=== PATIENT | female | born 1940 | race Caucasian/White ===

== ENCOUNTER 2019-07-08 11:08 | Day surgery (SDC) | payer OTHER ==
[2019-07-07 16:47] VITALS: BMI 22.2
[2019-07-08] MEDS ORDERED: PROPOFOL 20 ML ONE (13:28)
[2019-07-08] MEDS ORDERED: ceFAZolin SODIUM 1 GM VIAL IVPB ONE (13:42)
[2019-07-08] MEDS ORDERED: LACTATED RINGERS SOLUTION 1,000 ML IV SCH (14:00)
[2019-07-08] MEDS ORDERED: ONDANSETRON 4 MG/2 ML VIAL IVPUSH PRN (14:00)
--- NOTE | 2019-07-08 14:13 | CONS ---
DATE OF CONSULTATION: DATE OF DICTATION: 07/08/2019 HISTORY: Patient is a 78-year-old female with a history of transitional cell carcinoma of the urinary bladder. The patient underwent TUR bladder tumor in April 2019. This was over the left ureteral orifice, and there was left hydroureteronephrosis. Therefore, patient underwent a left JJ stent. She does have history of a CVA in the past. ALLERGIES: She is allergic to STRAWBERRIES. PAST MEDICAL HISTORY: She also has a history of high blood pressure, coronary artery disease, dyslipidemia, atrial fibrillation, and a CVA. She has been on anticoagulants but has stopped for the past 5 days. PHYSICAL EXAMINATION: General: Reveals a well oriented in no apparent distress adult female. Chest: Clear. Abdomen: Soft. There is no CVA tenderness. Pelvic: Reveals no masses. A CT scan revealed bilateral hydroureteronephrosis with a stent in the left renal unit. The patient's BUN is 24, creatinine 1.9. IMPRESSION: At present is: 1. History of bladder tumor. 2. History of left JJ stent. 3. CAT scan findings of bilateral hydronephrosis. PLAN: Cystoscopy, possible left stent exchange, right retrograde pyelogram, possible placement of stent, possible TUR bladder tumor. Tesha [id number]
--- NOTE | 2019-07-08 14:32 | OP ---
Operative Note - Note: Operative Date: 07/08/19 Pre-Operative Diagnosis: sharon. hydro, h/o tcc of bladder, lt. migrated jj stent Operation: cysto, sharon. retro. attempted jj stents Findings: gr-4 cystocele and hemorrgh. cystitis Post-Operative Diagnosis: Same as Pre-op Surgeon: Simon Mueller Anesthesia: General Specimens Removed: urine Estimated Blood Loss (mls): 0 Drains & Tubes with Location: 18f 10cc ashley Drains, Volume Out (mls): 0 Blood Volume Replaced (mls): 0 Fluid Volume Replaced (mls): 0 Operative Report Dictated: Yes
--- NOTE | 2019-07-08 15:00 | OP ---
DATE OF OPERATION: DATE OF DICTATION: 07/08/2019 PREOPERATIVE DIAGNOSIS: History of recurrent bladder tumor, bilateral hydronephrosis, left JJ stent. POSTOPERATIVE DIAGNOSIS: No tumors seen. Migrated left JJ stent, hemorrhagic cystitits, grade 4 cystocele. ANESTHESIA: General. DESCRIPTION OF PROCEDURE: Under above-stated anesthesia, patient was prepped and draped in the usual sterile manner. She was placed in the dorsal lithotomy position. Inspection of the external genitalia revealed complete descent of the bladder outside the vaginal orifice. There was also a large urethra caruncle and atrophic vaginitis. Cystoscopy revealed 50 mL of purulent urine. This was sent for culture and sensitivity. Inspection of the bladder revealed severe trabeculation and hyperemia. No overt tumors were seen. Both ureteral orifices were unable to be seen or cannulated. Therefore, the bladder was emptied. Scope was removed. The 16-Turkish Saab was left in place. The patient tolerated the procedure well. She will go for a percutaneous left nephrostomy and removal of stent. Tesha [id number]
[2019-07-08 17:32] VITALS: PULSE 80; TEMP 97.8
[2019-07-08 18:01] VITALS: BP 111/58
== END 2019-07-08 17:15 | disposition home or self-care (01) ==
LOC: JASU-SURG 11:08
PROVIDERS: ATTEND Urology
PROC: 0TJB8ZZ Inspection of Bladder, Via Natural or Artificial Opening Endoscopic (ICD-10-PCS; principal; 2019-07-08 13:30)
DX: N32.89 Other specified disorders of bladder (principal); N30.81 Other cystitis with hematuria; N81.10 Cystocele, unspecified; N95.2 Postmenopausal atrophic vaginitis
CPT/HCPCS: 76000-TC-FY; 87086; 87186; 94760

== ENCOUNTER 2019-08-18 08:14 | Day surgery (SDC) | payer OTHER ==
[2019-08-15 11:29] VITALS: BMI 20.9
[2019-08-18 08:56] LABS: BASO % 0.4 % (0-2.0); EOS % 3.5 % (0-4.5); HEMATOCRIT 36.4 % (32.4-45.2); HEMOGLOBIN 11.8 GM/dL (10.7-15.3); LYMPH % 18.4 % (8-40); MCH 30.4 pg (25.7-33.7); MCHC 32.5 g/dl (32.0-36.0); MEAN CELL VOLUME 93.6 fl (80-96); MONO % 6.2 % (3.8-10.2); NEUT % 71.5 % (42.8-82.8); PLATELET COUNT 350 K/MM3 (134-434); RBC 3.89 M/mm3 (3.60-5.2); WHITE BLOOD COUNT 12.7 K/mm3 (4.0-10.0)
[2019-08-18 09:15] LABS: INR 0.92 (0.83-1.09); PROTHROMBIN TIME (PATIENT) 10.9 SEC (9.7-13.0)
[2019-08-18 14:26] VITALS: TEMP 97.5
[2019-08-18 15:41] VITALS: BP 117/68; PULSE 85
== END 2019-08-18 15:00 | disposition home or self-care (01) ==
LOC: JRADIR 08:14
PROVIDERS: ATTEND Urology
PROC: 0T9130Z Drainage of Left Kidney with Drainage Device, Percutaneous Approach (ICD-10-PCS; principal; 2019-08-18)
DX: N13.30 Unspecified hydronephrosis (principal)
CPT/HCPCS: 36415; 50432; 76942-TC; 85025; 85610; 87086; 87186; C1729; C1769

== ENCOUNTER 2019-09-01 09:24 | Day surgery (SDC) | payer OTHER ==
[2019-08-29 12:08] VITALS: BMI 20.9
[2019-09-01 16:00] VITALS: TEMP 98.3
[2019-09-01 17:37] VITALS: PULSE 78
[2019-09-01 18:45] VITALS: BP 111/68
== END 2019-09-01 17:45 | disposition home or self-care (01) ==
LOC: JRADIR 09:24
PROVIDERS: ATTEND Urology
PROC: 0TP93DZ Removal of Intraluminal Device from Ureter, Percutaneous Approach (ICD-10-PCS; principal; 2019-09-01)
PROC: 0T773DZ Dilation of Left Ureter with Intraluminal Device, Percutaneous Approach (ICD-10-PCS; 2019-09-01)
PROC: 0T25X0Z Change Drainage Device in Kidney, External Approach (ICD-10-PCS; 2019-09-01)
DX: N13.9 Obstructive and reflux uropathy, unspecified (principal); N13.30 Unspecified hydronephrosis; Z43.6 Encounter for attention to other artificial openings of urinary tract
CPT/HCPCS: 50384; 50433; 76000-TC-FY; A4358; C1769; C1887; C1894

== ENCOUNTER → 2019-09-15 | Day surgery (SDC) | payer OTHER | END | disposition home or self-care (01) | LOC: JRADIR 10:57 | PROVIDERS: ATTEND Radiology Diagnostic Radiology | PROC: 0T25X0Z Change Drainage Device in Kidney, External Approach (ICD-10-PCS; principal; 2019-09-15) | DX: N13.9 Obstructive and reflux uropathy, unspecified (principal); Z43.6 Encounter for attention to other artificial openings of urinary tract | CPT/HCPCS: 50435; C1729; C1769; C1894 ==

== ENCOUNTER → 2019-09-29 | Day surgery (SDC) | payer OTHER | END | disposition home or self-care (01) | LOC: JRADIR 10:37 | PROVIDERS: ATTEND Radiology Diagnostic Radiology | PROC: 0TP5X0Z Removal of Drainage Device from Kidney, External Approach (ICD-10-PCS; principal; 2019-09-29) | DX: Z43.6 Encounter for attention to other artificial openings of urinary tract (principal) | CPT/HCPCS: 50389; 50431; 74425-TC-FY ==

== ENCOUNTER 2020-02-25 08:35 | Day surgery (SDC) | payer OTHER ==
[2020-02-24 17:31] VITALS: BMI 24.7
[2020-02-25] MEDS ORDERED: PROPOFOL 20 ML ONE (11:36)
[2020-02-25] MEDS ORDERED: ceFAZolin SODIUM 1 GM VIAL IVPB ONE ×2 (12:05→12:09)
[2020-02-25] MEDS ORDERED: EPHEDRINE SULFATE/0.9% NACL/PF 50 MG/10 ML SYRINGE NR ONE (12:12)
[2020-02-25] MEDS ORDERED: ceFAZolin SODIUM 1 GM VIAL ONE ×2 (12:13)
--- NOTE | 2020-02-25 12:45 | OP ---
Operative Note - Note: Operative Date: 02/25/20 Pre-Operative Diagnosis: bladder tumor (tcc) Operation: turbt Findings: large papillary tumor on rt. lat. wall and rt. hemitrigone Post-Operative Diagnosis: Same as Pre-op Surgeon: Simon Mueller Anesthesia: General Specimens Removed: bladder tumor chips Estimated Blood Loss (mls): 30 Drains & Tubes with Location: 22f 20cc ashley Drains, Volume Out (mls): 0 Blood Volume Replaced (mls): 0 Fluid Volume Replaced (mls): 0 Operative Report Dictated: Yes
[2020-02-25] MEDS ORDERED: ACETAMINOPHEN 325 MG TABLET (FP) PO PRN (12:46)
[2020-02-25 17:21] VITALS: BP 112/76; PULSE 78; TEMP 98
--- NOTE | 2020-02-26 11:45 | HP ---
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 She last underwent a TUR of bladder tumor in July 2019. She also has a left percutaneous nephrostomy due to hydronephrosis. Patient has had a history of high blood pressure, COPD, coronary artery disease, and dyslipidemia. She is allergic to STRAWBERRIES. She denies tobacco or ethanol abuse. She is on a statin as well as Eliquis, which she stopped. Physical exam revealed a soft abdomen. No CVA tenderness is noted. Extremities revealed no cyanosis, clubbing, or edema. BUN and creatinine were 23/1.3, respectively. A urinalysis is positive for blood. IMPRESSION: At present is rule out recurrent transitional cell carcinoma of urinary bladder. PLAN: Cystoscopy, possible TUR of bladder. Tesha [id number]
--- NOTE | 2020-02-26 17:57 | OP ---
DATE OF OPERATION: PREOPERATIVE DIAGNOSIS: History of recurrent bladder tumor. POSTOPERATIVE DIAGNOSIS: Recurrent bladder tumor. OPERATIVE PROCEDURE: Cystourethroscopy, transurethral resection of bladder tumor. ANESTHESIA: General. DESCRIPTION OF PROCEDURE: Under above stated anesthesia, patient was prepped and draped in the usual sterile manner. She was placed in the dorsal lithotomy position. Inspection of the external genitalia revealed vaginal stenosis with atrophic vaginitis. There was a large urethral caruncle. Bladder was entered. Urine was collected for culture and sensitivity as well as cytology. Inspection of the bladder reveals a large papillary tumor involving the right lateral wall and the right lorraine dome of the bladder, approximately 7 cm in diameter. This was resected in the usual fashion. The base was cauterized. Ureteral orifices were within normal limits with efflux of clear urine. Tumor chips were evacuated with an [employer] evacuator. No active bleeding was noted. Therefore the bladder was emptied, the scope was removed. A 24 Vietnamese Saab was inserted. This was connected to a drainage bag. The patient tolerated the procedure well. She returned to the recovery room in good condition. Tesha [id number]
--- NOTE | 2020-02-27 19:20 | PATH ---
Surgical Pathology Report Patient Name: ELVIS LITTLE [facility]. Rec. #: [id number] /Age/Gender: 1940 (Age: 79) / F Account: [id number] Location: [facility] SURGICAL Taken: 02/25/2020 Received: 02/25/2020 Reported: 02/27/2020 Physicians: Simon Mueller M.D. Specimen(s) Received BLADDER CHIPS, BLADDER WALL AND DOME, RIGHT Clinical History Recurrent bladder tumor Final Diagnosis BLADDER CHIPS, BLADDER WALL AND DOME, RIGHT, TRANSURETHRAL RESECTION OF BLADDER TUMOR HIGH GRADE PAPILLARY UROTHELIAL CARCINOMA. RARE FOCUS SUSPICIOUS FOR LAMINA PROPRIA INVASION. MUSCULARIS PROPRIA IDENTIFIED. NO FLAT CARCINOMA IN SITU (CIS) IDENTIFIED. Comment: Case discussed with Dr. Trujillo, 02/27/20. See concurrent cytology ([id number]). Electronically Signed Alexia Lyons M.D. Gross Description Received in formalin labeled "bladder chips right bladder wall and dome," is a 6.5 x 4.0 x 0.6 cm aggregate of tom soft tissue fragments. The formalin is filtered and the specimen is entirely submitted in 5 cassettes. DL/02/25/2020 saudi/02/25/2020
--- NOTE | 2020-02-27 19:33 | PATH ---
Cytology Non-Gynecological Report Patient Name: ELVIS LITTLE [facility]. Rec. #: [id number] /Age/Gender: 1940 (Age: 79) / F Account: [id number] Location: [facility] SURGICAL Taken: 02/25/2020 Received: 02/25/2020 Reported: 02/27/2020 Physicians: Simon Mueller M.D. Specimen(s) Received URINE Clinical History Hematuria, bladder tumor Final Diagnosis URINE FOR CYTOLOGY: SATISFACTORY FOR EVALUATION. SUSPICIOUS FOR HIGH GRADE UROTHELIAL CARCINOMA. RARE CLUSTERS AND SCATTERED SINGLE ATYPICAL UROTHELIAL CELLS WITH INCREASED NUCLEUS TO CYTOPLASMIC RATIO, IRREGULAR NUCLEAR CONTOURS, AND COARSENING OF CHROMATIN. BACKGROUND SHOWS NUMEROUS NEUTROPHILS, RARE RED BLOOD CELLS, AND BACTERIA PRESENT. Comment: See concurrent bladder resection ([id number]). Electronically Signed Alexia Lyons M.D. Gross Description Approximately 20 cc of yellow fluid received fresh. One cytofunnel prepared and Pap stained.
== END 2020-02-25 16:45 | disposition home or self-care (01) ==
LOC: JASU-SURG 08:35
PROVIDERS: ATTEND Urology
PROC: 0T5B8ZZ Destruction of Bladder, Via Natural or Artificial Opening Endoscopic (ICD-10-PCS; principal; 2020-02-25 10:00)
DX: C67.8 Malignant neoplasm of overlapping sites of bladder (principal)
CPT/HCPCS: 87086; 87186; 88108; 88307-TC; 94760